=== PATIENT | male | born 1950 | race Caucasian/White ===

== ENCOUNTER 2018-05-07 11:55 | Emergency (ER) | payer MEDICARE, BC ==
[~2018-05-07] VITALS: Ht 177.8 cm; Wt 79.1 kg
[2018-05-07] MEDS ORDERED: ONDANSETRON 2MG/ML, 2ML ONE (12:24)
[2018-05-07] MEDS ORDERED: MORPHINE SULFATE 4 MG/ML, 1ML ONE (12:24)
[2018-05-07] MEDS ORDERED: MORPHINE SULFATE 4 MG/ML, 1ML IVPush PRN (12:30)
[2018-05-07] MEDS ORDERED: SODIUM CHLORIDE 0.9% 1,000ML IVBOLUS ONE (12:30)
[2018-05-07] MEDS ORDERED: ONDANSETRON 2MG/ML, 2ML IVPush ONE (12:30)
[2018-05-07] MEDS ORDERED: SODIUM CHLORIDE FLUSH 10ML SYR IVF ONE (12:30)
[2018-05-07] MEDS ORDERED: KETOROLAC 30 MG/1 ML IVPush ONE (12:30)
[2018-05-07 12:32] LABS: BASOPHILS # (AUTO) 0.02 x10^3/uL (0-0.1); BASOPHILS % (AUTO) 1 % (0-1); EOSINOPHILS # (AUTO) 0.06 x10^3/uL (0-0.4); EOSINOPHILS % (AUTO) 1 % (1-7); LYMPHOCYTES # (AUTO) 0.89 x10^3/uL (1-3.4); LYMPHOCYTES % (AUTO) 20 % (22-44); MD NO; MEAN CORPUSCULAR HEMOGLOBIN 30.9 pg (27.5-34.5); MEAN CORPUSCULAR HGB CONC 33.6 g/dL (33.2-36.2); MEAN CORPUSCULAR VOLUME 92.1 fL (81-97); MEAN PLATELET VOLUME 8.5 fL (7.4-10.4); MONOCYTES # (AUTO) 0.36 x10^3/uL (0.2-0.8); MONOCYTES % (AUTO) 8 % (2-9); NEUTROPHILS # (AUTO) 3.23 x10^3/uL (1.8-6.8); NEUTROPHILS % (AUTO) 71 % (42-75); PLATELET COUNT 259 x10^3/uL (130-400); RED BLOOD COUNT 5.23 x10^6/uL (4.38-5.82); RED CELL DISTRIBUTION WIDTH 13.8 % (9.4-14.8)
[2018-05-07] MEDS ORDERED: KETOROLAC 30 MG/1 ML ONE (12:39)
[2018-05-07 12:43] LABS: ALANINE AMINOTRANSFERASE 34 U/L (12-78); ALBUMIN 4.5 g/dL (3.4-5.0); ANION GAP 7 mmol/L (5-15); CALCIUM 9.2 mg/dL (8.5-10.1); CHLORIDE 108 mmol/L (98-107)
[2018-05-07 12:46] LABS: ALKALINE PHOSPHATASE 41 U/L (45-117); TOTAL PROTEIN 7.8 g/dL (6.4-8.2)
[2018-05-07 13:17] LABS: MICROSCOPIC INDICATED
[2018-05-07 13:35] LABS: CULTURE INDICATED? NO
[2018-05-07 13:41] VITALS: BP 131/74
== END 2018-05-07 13:52 | disposition home or self-care (01) ==
LOC: ED 13:41
DX: N20.0 Calculus of kidney (principal); E78.5 Hyperlipidemia, unspecified; M10.9 Gout, unspecified
CPT/HCPCS: 36415; 74176; 80053; 81001; 85025; 96374; 96375; 99285; J1885; J2405; J7030

== ENCOUNTER → 2018-06-26 | Outpatient (CLI) | payer MEDICARE, BC ==
[~2018-06-26] MED LIST: ALLO300T PO; ATOR40TA78 PO; CELE200C PO; CELEXA PO; FENO160T PO; LIPITOR PO; TAMS-11 PO
== END | disposition home or self-care (01) ==
LOC: STAR 11:31
PROVIDERS: ATTEND Urology
DX: I49.8 Other specified cardiac arrhythmias (principal); N20.1 Calculus of ureter
CPT/HCPCS: 93005

== ENCOUNTER → 2018-06-30 | Outpatient (CLI) | payer MEDICARE, BC | END | disposition home or self-care (01) | LOC: RAD 09:57 | PROVIDERS: ATTEND Urology | DX: N20.1 Calculus of ureter (principal); R91.1 Solitary pulmonary nodule | CPT/HCPCS: 74176 ==

== ENCOUNTER 2018-07-01 07:50 | Day surgery (SDC) | payer MEDICARE, BC ==
[~2018-07-01] VITALS: Ht 177.8 cm; Wt 78.5 kg
[~2018-07-01 07:50] MED LIST changes: -ATOR40TA78 PO; -CELE200C PO; -FENO160T PO; -TAMS-11 PO
[2018-07-01 08:23] VITALS: BP 135/80
[2018-07-01] MEDS ORDERED: LACTATED RINGERS 1,000 ML IV SCH (08:26)
[2018-07-01] MEDS ORDERED: LIDOCAINE-MPF 1%, 2ML INFIL ONE (08:30)
[2018-07-01] MEDS ORDERED: CELE200C PO (08:32)
[2018-07-01] MEDS ORDERED: TAMS-11 PO (08:32)
[2018-07-01] MEDS ORDERED: FENO160T PO (08:32)
[2018-07-01] MEDS ORDERED: ATOR40TA78 PO (08:32)
[2018-07-01] MEDS ORDERED: FENTANYL PF 100 MCG/2ML ONE ×2 (10:04→11:59)
[2018-07-01] MEDS ORDERED: MIDAZOLAM 1 MG/ML, 2ML ONE (10:05)
[2018-07-01] MEDS ORDERED: PROPOFOL 10 MG/ML, 20ML ONE (10:09)
[2018-07-01] MEDS ORDERED: SUCCINYLCHOLINE 20 MG/ML, 10ML ONE (10:09)
[2018-07-01] MEDS ORDERED: KETOROLAC 30 MG/1 ML ONE (10:09)
[2018-07-01] MEDS ORDERED: ONDANSETRON 2MG/ML, 2ML ONE (10:09)
[2018-07-01] MEDS ORDERED: DEXAMETHASONE 4 MG/ML, 1ML ONE (10:09)
[2018-07-01] MEDS ORDERED: HYDROmorphone 2 MG/ML, 1ML IVPush PRN (11:30)
[2018-07-01] MEDS ORDERED: ALBUTEROL SULFATE 2.5 MG/3 ML NPPB PRN (11:30)
[2018-07-01] MEDS ORDERED: KETOROLAC 30 MG/1 ML IV PRN (11:30)
[2018-07-01] MEDS ORDERED: OXYcodone 5 MG/5 ML ORAL.SOL UDC PO PRN (11:30)
[2018-07-01] MEDS ORDERED: PROMETHAZINE 25 MG/ML, 1ML IV PRN (11:30)
[2018-07-01] MEDS ORDERED: LABETALOL 5MG/ML, 20ML IV PRN (11:30)
[2018-07-01] MEDS ORDERED: ACETAMINOPHEN 325 MG TABLET PO PRN (11:30)
[2018-07-01] MEDS ORDERED: hydrALAzine 20 MG/ML, 1ML IV PRN (11:30)
[2018-07-01] MEDS ORDERED: DIAZEPAM 5 MG/ML, 2ML IVPush PRN (11:30)
[2018-07-01] MEDS ORDERED: MEPERIDINE/PF 25MG/0.5ML IVPush PRN (11:30)
[2018-07-01] MEDS ORDERED: FENTANYL PF 100 MCG/2ML IV PRN (11:30)
== END 2018-07-01 14:25 | disposition home or self-care (01) ==
LOC: OUT 07:50
PROVIDERS: ATTEND Urology
DX: N20.1 Calculus of ureter (principal); E78.00 Pure hypercholesterolemia, unspecified; M10.9 Gout, unspecified; Z79.899 Other long term (current) drug therapy
CPT/HCPCS: 52356; 82360; 88300; C1769; C2617; J0330; J1100; J1885; J2250; J2405; J2704; J3010; J3490; J7120

== ENCOUNTER → 2018-08-11 | Outpatient (CLI) | payer MEDICARE, BC ==
[~2018-08-11] MED LIST changes: +ATOR40TA78 PO; +CELE200C PO; +FENO160T PO; +FUROSEMIDE 20 MG/2 ML ONE; +TAMS-11 PO
== END | disposition home or self-care (01) ==
LOC: RAD 11:47
PROVIDERS: ATTEND Urology
DX: R10.9 Unspecified abdominal pain (principal)
CPT/HCPCS: 78708; A9562; J1940